=== PATIENT | female | born 1955 | race Caucasian/White ===

== ENCOUNTER 2021-10-16 07:21 | Outpatient (CLI) | payer OTHER, SELFPAY ==
--- NOTE | ~2021-10-16 | MM_ITS ---
EXAMINATION: MM screening [facility] BI w timoteo HISTORY: Screening mammogram TECHNIQUE: Craniocaudal and mediolateral oblique 3-D tomosynthesis images were obtained and synthetic 2-D images were generated. CAD analysis was submitted and interpreted. COMPARISON: 08/15/2018 diagnostic left mammogram and limited left breast ultrasound 01/05/2018, 05/19/2016 bilateral screening mammogram examinations BREAST PARENCHYMAL COMPOSITION: There are scattered areas of fibroglandular density. FINDINGS: There is no evidence of suspicious mass, calcification, or architectural distortion to sugg est malignancy in either breast. There has been no suspicious interval change. IMPRESSION: 1. No mammographic evidence of malignancy. 2. Recommend routine screening mammography in one year. BI-RADS Category 1: Negative Reviewed, dictated and finalized at location A.
== END 2021-10-16 07:22 | disposition home or self-care (01) ==
LOC: ANHIMG 07:25
PROVIDERS: PCP Internal Medicine; Visit Provider Internal Medicine
DX: Z12.31 Encounter for screening mammogram for malignant neoplasm of breast (principal)
CPT/HCPCS: 77063; 77067

== ENCOUNTER 2022-01-06 14:03 | Outpatient (CLI) | payer OTHER, SELFPAY ==
--- NOTE | ~2022-01-06 | DEXA_ITS ---
Bone Density Report Name: NOE KRAMER Age: 66 Sex: Female Ethnicity: White Date of : 1955 Indication: postmenopausal; screening for osteoporosis; height loss; Referring Provider: JOSE, SANG Schumacher Study: Bone densitometry was performed. Exam Date: January 06, 2022 Accession number: [id number] Bone Density: Region BMD T-score Z-score Classification AP Spine(L1-L4) 1.033 -0.1 1.7 Normal Femoral Neck (Left) 0.641 -1.9 -0.3 Osteopenia Total Hip (Left) 0.911 -0.3 1.1 Normal Femoral Neck (Right) 0.693 -1.4 0.2 Osteopenia Total Hip (Right) 0.866 -0.6 0.7 Normal Total Hip Mean 0.889 -0.5 0.9 Normal World Health Organization criteria for BMD impression classify patients as: Normal (T-score at or above -1.0), Osteopenia (T-score between -1.0 and -2.5), or Osteoporosis (T-score at or below -2.5). 10-year Fracture Risk(1): Major Osteoporotic Fracture 9.8% Hip Fracture 1.4% Reported Risk Factors: [place] (), Neck BMD=0.641, BMI=32.4 (1) FRAX(R) Version 3.08. Fracture probability calculated for an untreated patient. Fracture probability may be lower if the patient has received treatment. Previous Exams: Region Exam Age BMD T-score BMD Change BMD Change Date g/cm2 vs Baseline vs Previous AP Spine (L1-L4) 01/06/2022 66 1.033 -0.1 -0.012 (-1.2%) -0.012 (-1.2%) 05/19/2016 60 1.045 0.0 Total Hip(Left) 01/06/2022 66 0.911 -0.3 -0.038 (-4.0%) -0.038 (-4.0%) 05/19/2016 60 0.949 0.1 Total Hip(Right) 01/06/2022 66 0.866 -0.6 -0.045 (-4.9%) -0.045 (-4.9%) 05/19/2016 60 0.911 -0.3 *Denotes significance at 95% confidence level, LSC for AP Spine = 0.022 g/cm2, LSC for Total Hip = 0.027 g/cm2 Clinical Information Provided by Patient: Has used the following medications: Vitamin D Patient maximum height was 66 Menopause Age: 55 Drinks caffeinated beverages Onset of menses at age 13 Number of children 0 Impression: The patient has low bone mass, based on the Left Femoral Neck T-score. The patient has an estimated ten-year risk of hip fracture of 1.4% and an estimated ten-year risk of major fracture of 9.8%, based on the WHO FRAX algorithm. The BMD for the Total Hip(Left) decreased, changing by -4.0% since the last DXA exam. The BMD for the Total Hip(Right) decreased, changing by -4.9% since the last DXA exam. Discussion: BONE DENSITY IS LOW AT ONE OR MORE SKELETAL SITES. This patient'
== END 2022-01-06 14:04 | disposition home or self-care (01) ==
PROVIDERS: PCP Internal Medicine; Visit Provider Internal Medicine
DX: Z78.0 Asymptomatic menopausal state (principal); M85.852 Other specified disorders of bone density and structure, left thigh; M85.851 Other specified disorders of bone density and structure, right thigh
CPT/HCPCS: 77080

== ENCOUNTER → 2022-07-20 13:25 | Outpatient (CLI) | payer OTHER, SELFPAY ==
--- NOTE | ~2022-07-20 | CT_ITS ---
Noncontrast CT scan of the right foot Clinical HISTORY: Postoperative swelling. History of orthopedic surgery in the foot 9 weeks ago. TECHNIQUE: Axial noncontrast imaging of the right foot was performed. Sagittal and coronal reformatte d images were constructed. Dose reduction technique was used on this scan by utilizing automated expo sure control and iterative reconstruction technique. The dose-length product (DLP) was 158.78 mGy-cm. Findings: There is orthopedic hardware about the first tarsometatarsal joint region and base of the f irst metatarsal with apparent fusion across the first TMT joint, as well as probable fusion across th e intercuneiform joint between the medial and middle cuneiforms. There are multiple linear lucencies throughout the base of the first metatarsal, which could be postoperative in nature versus fracture. Correlate clinically for signs/symptoms of infection, though no gross destructive change evident othe rwise. Remaining osseous structures are otherwise intact. There is mild subcutaneous soft tissue edema in the foot. No focal fluid collection clearly evident. No other gross soft tissue abnormality evident. IMPRESSION: Postoperative changes about the base the first metatarsal and first tarsometatarsal joint, as detaile d above. Correlate with surgical history. Apparent underlying fragmentation at the proximal first metatarsal. This could reflect postoperative change versus underlying fracture. Correlate clinically for any signs/symptoms of infection. Mild nonspecific subcutaneous soft tissue edema. No definite focal fluid collection or other soft tis abraham abnormality seen. Reviewed, dictated and finalized at [facility]. IMPRESSION: Postoperative changes about the base the first metatarsal and first tarsometata rsal joint, as detailed above. Correlate with surgical history. Apparent underlying fragmentation at the proximal first metatarsal. This could reflect postoperative change versus underlying fracture. Correlate clinically f or any signs/symptoms of infection. Mild nonspecific subcutaneous soft tissue edema. No definite focal fluid collec tion or other soft tissue abnormality seen.
== END ==
PROVIDERS: PCP Internal Medicine
DX: Z47.89 Encounter for other orthopedic aftercare (principal); Q66.211 Congenital metatarsus primus varus, right foot
CPT/HCPCS: 73700

== ENCOUNTER 2023-09-09 13:26 | Outpatient (CLI) | payer OTHER, SELFPAY ==
--- NOTE | ~2023-09-09 | US_ITS ---
EXAMINATION: US thyroid DATE: 09/09/2023 13:42 INDICATION: Dysphagia. TECHNIQUE: Multiple ultrasound images of the thyroid were obtained. COMPARISON: None. FINDINGS: The right thyroid lobe measures 3.7 x 1.0 x 0.8 cm. The left thyroid lobe measures 2.4 x 0.8 x 0.8 c m. In the left thyroid lobe, there is a 7 mm solid, hyperechoic, wider than tall nodule with ill-def ined margin without echogenic foci (TI-RADS TR3). IMPRESSION: 1. Small thyroid nodule, likely not clinically significant. No follow-up is needed. Reviewed, dictated and finalized at location E. IMPRESSION: 1. Small thyroid nodule, likely not clinically significant. No follow-up is nee ded.
== END 2023-09-09 13:27 ==
PROVIDERS: PCP Internal Medicine; Visit Provider Internal Medicine
DX: E04.1 Nontoxic single thyroid nodule (principal); R13.10 Dysphagia, unspecified
CPT/HCPCS: 76536

== ENCOUNTER 2023-12-02 13:15 | Outpatient (CLI) | payer OTHER, SELFPAY ==
--- NOTE | ~2023-12-02 | US_ITS ---
EXAMINATION: US transvaginal INDICATION: Pelvic and perineal Comparison:Ultrasound dated 04/02/2010 TECHNIQUE: Multiple endovaginal sonographic images of the pelvis performed. FINDINGS: The uterus measures 6.2 x 2.4 x 3.1 cm. There is uterine fibroid located posteriorly measur ing 2.4 cm. The endometrial complex measures 2 mm. The right ovary measures 1.4 x 1.8 x 1.1 cm and the left ovary measures 2.4 x 1.3 x 1.5 cm. There ar e small follicles in each ovary. Normal doppler signal in both ovaries. There is no free fluid in the pelvis. There are no abnormal masses seen on either side. IMPRESSION: 1. Uterine fibroid identified located posteriorly measuring 2.4 x 2.1 x 2 cm. Reviewed, dictated and finalized at location B.
== END 2023-12-02 13:16 ==
LOC: MICIMG 13:16
PROVIDERS: PCP Internal Medicine; Visit Provider Internal Medicine
DX: R10.2 Pelvic and perineal pain (principal); D25.9 Leiomyoma of uterus, unspecified
CPT/HCPCS: 76830

== ENCOUNTER 2024-04-19 10:19 | Outpatient (CLI) | payer OTHER, SELFPAY ==
--- NOTE | ~2024-04-19 | MM_ITS ---
EXAMINATION: MM screening [facility] BI w timoteo HISTORY: Screening TECHNIQUE: Craniocaudal and mediolateral oblique 3-D tomosynthesis images were obtained and synthetic 2-D images were generated. CAD analysis was submitted and interpreted. COMPARISON: 10/16/2021 and dating back to 05/19/2016 BREAST PARENCHYMAL COMPOSITION: There are scattered areas of fibroglandular density. FINDINGS: Punctate calcifications detected bilaterally, stable and benign in appearance both of vascu lar and dermal origin. Otherwise stable parenchymal pattern without suspicious microcalcifications, architectural distortion , discrete masses or significant asymmetry. IMPRESSION: 1. No mammographic evidence of malignancy. 2. Recommend routine screening mammography in one year. BI-RADS Category 2: Benign finding(s). Reviewed, dictated and finalized at location A. ENTIALING MANAGER
== END 2024-04-19 10:20 | disposition home or self-care (01) ==
LOC: MICIMG 10:19
PROVIDERS: PCP Internal Medicine; Visit Provider Internal Medicine
DX: Z12.31 Encounter for screening mammogram for malignant neoplasm of breast (principal)
CPT/HCPCS: 77063; 77067

== ENCOUNTER 2024-05-03 14:49 | Outpatient (CLI) | payer OTHER, SELFPAY ==
--- NOTE | ~2024-05-03 | DEXA_ITS ---
Bone Density Report Name: NOE KRAMER Age: 68 Sex: Female Ethnicity: White Date of : 1955 Indication: postmenopausal; screening for osteoporosis; height loss; Referring Provider: JOSE, SANG Schumacher Study: Bone densitometry was performed. Exam Date: May 03, 2024 Accession number: [id number] Bone Density: Region BMD T-score Z-score Classification AP Spine(L1-L4) 1.068 0.2 2.2 Normal Femoral Neck (Left) 0.681 -1.5 0.2 Osteopenia Total Hip (Left) 0.917 -0.2 1.2 Normal Femoral Neck (Right) 0.664 -1.7 0.1 Osteopenia Total Hip (Right) 0.841 -0.8 0.6 Normal Total Hip Mean 0.879 -0.5 0.9 Normal World Health Organization criteria for BMD impression classify patients as: Normal (T-score at or above -1.0), Osteopenia (T-score between -1.0 and -2.5), or Osteoporosis (T-score at or below -2.5). 10-year Fracture Risk(1): Major Osteoporotic Fracture 9.4% Hip Fracture 1.3% Reported Risk Factors: [place] (), Neck BMD=0.664, BMI=33.6 (1) FRAX(R) Version 3.08. Fracture probability calculated for an untreated patient. Fracture probability may be lower if the patient has received treatment. Previous Exams: Region Exam Age BMD T-score BMD Change BMD Change Date g/cm2 vs Baseline vs Previous AP Spine (L1-L4) 05/03/2024 68 1.068 0.2 0.023 (2.2%)* 0.035 (3.4%)* 01/06/2022 66 1.033 -0.1 -0.012 (-1.2%) -0.012 (-1.2%) 05/19/2016 60 1.045 0.0 Total Hip(Left) 05/03/2024 68 0.917 -0.2 -0.032 (-3.4%) 0.006 (0.6%) 01/06/2022 66 0.911 -0.3 -0.038 (-4.0%) -0.038 (-4.0%) 05/19/2016 60 0.949 0.1 Total Hip(Right) 05/03/2024 68 0.841 -0.8 -0.070 (-7.7%) -0.025 (-2.9%) 01/06/2022 66 0.866 -0.6 -0.045 (-4.9%) -0.045 (-4.9%) 05/19/2016 60 0.911 -0.3 *Denotes significance at 95% confidence level, LSC for AP Spine = 0.022 g/cm2, LSC for Total Hip = 0.027 g/cm2 Clinical Information Provided by Patient: Patient maximum height was 66 Menopause Age: 55 Drinks caffeinated beverages Onset of menses at age 13 Number of children 0 Impression: The patient has low bone mass, based on the Right Femoral Neck T-score. The patient has an estimated ten-year risk of hip fracture of 1.3% and an estimated ten-year risk of major fracture of 9.4%, based on the WHO FRAX algorithm. No significant bone loss was observed. Discussion: BONE DENSITY IS LOW AT ONE OR MORE SKELETAL SITES. This patient's lowest T-score is low at one or more skeletal sites. It meets the World Health Organization's (WHO) criteria for ?low bone mass? (T-score between -1.0 and -2.5). The patient's 10-year risk of fracture as calculated by FRAX is less than the threshold where pharmacological therapy is recommended by the National Osteoporosis Foundation (NOF). However, all treatment decisions require clinical judgment and consideration of individual patient factors, including patient preferences, comorbidities, previous drug use, risk factors not captured in the FRAX model (e.g., frailty, falls, vitamin D deficiency, increased bone turnover, interval significant decline in bone density) and possible under or overestimation of fracture risk by FRAX. The patient should follow a healthful lifestyle (good nutrition with adequate calcium and vitamin D, and appropriate weight-bearing exercise). Follow-Up: Consider repeating this study in 2 to 3 years to reassess this patient's status, or sooner if there is some new clinical indication. Reported by: MARIZA on 05/03/2024 3:25:00 PM. Reviewed, dictated and finalized at location APatrick SIMONS
== END 2024-05-03 14:50 | disposition home or self-care (01) ==
PROVIDERS: PCP Internal Medicine; Visit Provider Internal Medicine
DX: Z78.0 Asymptomatic menopausal state (principal); M85.852 Other specified disorders of bone density and structure, left thigh; M85.851 Other specified disorders of bone density and structure, right thigh
CPT/HCPCS: 77080

== ENCOUNTER 2024-07-17 08:33 | Outpatient (CLI) | payer OTHER, SELFPAY ==
--- NOTE | ~2024-07-17 | XR_ITS ---
XR shoulder LT min 2V Ordering provider: Ruth Felix, History: . Pain, joint, shoulder L . Comparison: None. FINDINGS: BONES: No acute fracture or dislocation. JOINT SPACES: The acromioclavicular joint is normal. The glenohumeral joint is normal. SOFT TISSUES: Normal. IMPRESSION: No acute osseous abnormality left shoulder. Reviewed, dictated and finalized at location A.
--- NOTE | ~2024-07-17 | XR_ITS ---
[id number] Ordering provider: Ruth Felix, History: . Neck pain . Comparison: None. FINDINGS: VERTEBRAL BODIES: Minimal anterolisthesis at the level of C4-C5. Normal height and alignment. No visi ble fracture. The dens is intact. Degenerative changes of the spine. DISK SPACES: Narrowing of all the disc spaces. Multilevel facet joint disease. Multilevel uncovertebr al joint osteoarthritic changes. PARASPINOUS SOFT TISSUES: No prevertebral soft tissue swelling. IMPRESSION: No acute osseous abnormality cervical spine. Multilevel degenerative disc disease. Reviewed, dictated and finalized at location A.
== END 2024-07-17 08:34 | disposition home or self-care (01) ==
PROVIDERS: PCP Internal Medicine; Visit Provider Internal Medicine
DX: M25.512 Pain in left shoulder (principal); M50.30 Other cervical disc degeneration, unspecified cervical region
CPT/HCPCS: 72040; 73030